=== PATIENT | female | born 1955 | race Caucasian/White ===

== ENCOUNTER 2018-08-29 08:37 | Outpatient (CLI) | payer OTHER ==
[~2018-08-29 08:37] MED LIST: CEFTIN500 MG; LIPITOR20 MG; SYNTHROID88 MCG
== END 2018-08-29 08:45 | disposition home or self-care (01) ==
LOC: LAB 08:37
DX: E03.8 Other specified hypothyroidism (principal); E78.00 Pure hypercholesterolemia, unspecified; E55.9 Vitamin D deficiency, unspecified; R03.0 Elevated blood-pressure reading, without diagnosis of hypertension

== ENCOUNTER 2018-11-28 08:46 | Outpatient (CLI) | payer OTHER | END 2018-11-28 12:02 | disposition home or self-care (01) | LOC: LAB 08:46 | DX: M54.5 Low back pain (principal); E03.8 Other specified hypothyroidism; E55.9 Vitamin D deficiency, unspecified; E78.89 Other lipoprotein metabolism disorders; I11.9 Hypertensive heart disease without heart failure; M81.0 Age-related osteoporosis without current pathological fracture; Z12.11 Encounter for screening for malignant neoplasm of colon; Z13.820 Encounter for screening for osteoporosis ==

== ENCOUNTER 2018-11-28 09:40 | Outpatient (CLI) | payer OTHER | END 2018-11-28 13:46 | disposition home or self-care (01) | LOC: MAMO-SONO 09:40 | DX: Z12.31 Encounter for screening mammogram for malignant neoplasm of breast (principal); Z68.26 Body mass index [BMI] 26.0-26.9, adult; M54.5 Low back pain; E03.8 Other specified hypothyroidism; E55.9 Vitamin D deficiency, unspecified; E78.89 Other lipoprotein metabolism disorders; Z13.820 Encounter for screening for osteoporosis ==

== ENCOUNTER 2018-12-10 10:39 | Outpatient (CLI) | payer OTHER | END 2018-12-10 11:10 | disposition home or self-care (01) | LOC: EDBD 10:39 → LAB 10:39 → NUCLEAR 14:30 | DX: M54.5 Low back pain (principal); E03.8 Other specified hypothyroidism; E55.9 Vitamin D deficiency, unspecified; E78.49 Other hyperlipidemia; I11.9 Hypertensive heart disease without heart failure; M81.0 Age-related osteoporosis without current pathological fracture; Z12.11 Encounter for screening for malignant neoplasm of colon; Z68.26 Body mass index [BMI] 26.0-26.9, adult; Z13.820 Encounter for screening for osteoporosis ==

== ENCOUNTER → 2018-12-10 | Outpatient (CLI) | payer OTHER | END | disposition home or self-care (01) | LOC: NUCLEAR 11:42 | DX: M81.0 Age-related osteoporosis without current pathological fracture (principal); M54.5 Low back pain ==

== ENCOUNTER 2019-03-03 08:10 | Outpatient (CLI) | payer OTHER | END 2019-03-03 08:15 | disposition home or self-care (01) | LOC: LAB 08:10 | DX: E03.8 Other specified hypothyroidism (principal); E55.9 Vitamin D deficiency, unspecified; I11.9 Hypertensive heart disease without heart failure; Z68.26 Body mass index [BMI] 26.0-26.9, adult; M54.5 Low back pain; E78.89 Other lipoprotein metabolism disorders; M81.0 Age-related osteoporosis without current pathological fracture; Z12.11 Encounter for screening for malignant neoplasm of colon; Z13.820 Encounter for screening for osteoporosis; Z12.31 Encounter for screening mammogram for malignant neoplasm of breast ==

== ENCOUNTER 2019-06-24 07:37 | Outpatient (CLI) | payer OTHER | END 2019-06-24 15:00 | disposition home or self-care (01) | LOC: LAB 07:37 | DX: E55.9 Vitamin D deficiency, unspecified (principal); I11.9 Hypertensive heart disease without heart failure; Z68.26 Body mass index [BMI] 26.0-26.9, adult; M54.5 Low back pain; E03.8 Other specified hypothyroidism; E78.49 Other hyperlipidemia; M81.0 Age-related osteoporosis without current pathological fracture; Z12.11 Encounter for screening for malignant neoplasm of colon; Z13.820 Encounter for screening for osteoporosis; Z12.31 Encounter for screening mammogram for malignant neoplasm of breast ==

== ENCOUNTER 2019-09-29 07:56 | Outpatient (CLI) | payer OTHER | END 2019-09-29 08:02 | disposition home or self-care (01) | LOC: LAB 07:56 | DX: E55.9 Vitamin D deficiency, unspecified (principal); I11.9 Hypertensive heart disease without heart failure; Z68.26 Body mass index [BMI] 26.0-26.9, adult; M54.5 Low back pain; E03.8 Other specified hypothyroidism; E78.89 Other lipoprotein metabolism disorders; M81.0 Age-related osteoporosis without current pathological fracture; Z12.11 Encounter for screening for malignant neoplasm of colon; Z13.820 Encounter for screening for osteoporosis; Z12.31 Encounter for screening mammogram for malignant neoplasm of breast ==

== ENCOUNTER 2019-12-31 09:02 | Outpatient (CLI) | payer OTHER | END 2019-12-31 09:07 | disposition home or self-care (01) | LOC: LAB 09:02 | DX: I11.9 Hypertensive heart disease without heart failure (principal); Z68.25 Body mass index [BMI] 25.0-25.9, adult; Z12.11 Encounter for screening for malignant neoplasm of colon; Z13.820 Encounter for screening for osteoporosis; M54.5 Low back pain; E78.1 Pure hyperglyceridemia; E55.9 Vitamin D deficiency, unspecified; E78.2 Mixed hyperlipidemia; Z68.26 Body mass index [BMI] 26.0-26.9, adult; E03.8 Other specified hypothyroidism; E78.89 Other lipoprotein metabolism disorders; M81.0 Age-related osteoporosis without current pathological fracture; Z12.31 Encounter for screening mammogram for malignant neoplasm of breast ==

== ENCOUNTER 2019-12-31 10:47 | Outpatient (CLI) | payer OTHER | END 2019-12-31 10:49 | disposition home or self-care (01) | LOC: MAMO-SONO 10:47 | DX: Z12.31 Encounter for screening mammogram for malignant neoplasm of breast (principal); Z87.898 Personal history of other specified conditions; E55.9 Vitamin D deficiency, unspecified; I11.9 Hypertensive heart disease without heart failure; Z68.25 Body mass index [BMI] 25.0-25.9, adult; Z12.11 Encounter for screening for malignant neoplasm of colon; Z13.820 Encounter for screening for osteoporosis; M54.5 Low back pain; E78.2 Mixed hyperlipidemia; Z68.26 Body mass index [BMI] 26.0-26.9, adult; E03.8 Other specified hypothyroidism; E78.89 Other lipoprotein metabolism disorders ==

== ENCOUNTER → 2020-04-05 07:59 | Outpatient (CLI) | payer OTHER | END | disposition home or self-care (01) | LOC: LAB 07:59 | PROVIDERS: ATTEND Internal Medicine | DX: E03.8 Other specified hypothyroidism (principal); I11.9 Hypertensive heart disease without heart failure; Z68.25 Body mass index [BMI] 25.0-25.9, adult; Z12.11 Encounter for screening for malignant neoplasm of colon; Z13.820 Encounter for screening for osteoporosis; M54.5 Low back pain; E55.9 Vitamin D deficiency, unspecified; E78.1 Pure hyperglyceridemia; E78.2 Mixed hyperlipidemia; Z68.26 Body mass index [BMI] 26.0-26.9, adult; E78.89 Other lipoprotein metabolism disorders; M81.0 Age-related osteoporosis without current pathological fracture; Z12.31 Encounter for screening mammogram for malignant neoplasm of breast ==

== ENCOUNTER → 2021-04-28 09:02 | Outpatient (CLI) | payer OTHER | END | disposition home or self-care (01) | LOC: LAB 09:02 | PROVIDERS: ATTEND Internal Medicine | DX: E03.8 Other specified hypothyroidism (principal); E55.9 Vitamin D deficiency, unspecified; Z68.25 Body mass index [BMI] 25.0-25.9, adult; M54.5 Low back pain; E78.1 Pure hyperglyceridemia; E78.2 Mixed hyperlipidemia; I10 Essential (primary) hypertension; I70.0 Atherosclerosis of aorta; Z68.26 Body mass index [BMI] 26.0-26.9, adult; E78.89 Other lipoprotein metabolism disorders; Z12.31 Encounter for screening mammogram for malignant neoplasm of breast ==

== ENCOUNTER 2021-04-28 10:09 | Outpatient (CLI) | payer OTHER | END 2021-04-28 10:15 | disposition home or self-care (01) | LOC: MAMO-SONO 10:09 | PROVIDERS: ATTEND Internal Medicine | DX: R92.0 Mammographic microcalcification found on diagnostic imaging of breast (principal); Z12.31 Encounter for screening mammogram for malignant neoplasm of breast; N64.89 Other specified disorders of breast; M54.5 Low back pain; E55.9 Vitamin D deficiency, unspecified; Z68.25 Body mass index [BMI] 25.0-25.9, adult; E78.1 Pure hyperglyceridemia; E78.2 Mixed hyperlipidemia; I10 Essential (primary) hypertension; I70.0 Atherosclerosis of aorta; Z68.26 Body mass index [BMI] 26.0-26.9, adult; E03.8 Other specified hypothyroidism; E78.89 Other lipoprotein metabolism disorders ==

== ENCOUNTER → 2022-02-24 08:51 | Outpatient (CLI) | payer OTHER | END | disposition home or self-care (01) | LOC: NUCLEAR 08:51 | PROVIDERS: ATTEND Internal Medicine | DX: Z13.820 Encounter for screening for osteoporosis (principal); Z12.31 Encounter for screening mammogram for malignant neoplasm of breast; E55.9 Vitamin D deficiency, unspecified; Z68.25 Body mass index [BMI] 25.0-25.9, adult; M54.59 Other low back pain; E78.1 Pure hyperglyceridemia; E78.2 Mixed hyperlipidemia; I10 Essential (primary) hypertension; I70.0 Atherosclerosis of aorta; Z68.26 Body mass index [BMI] 26.0-26.9, adult; E03.9 Hypothyroidism, unspecified; E78.9 Disorder of lipoprotein metabolism, unspecified ==

== ENCOUNTER 2022-05-16 10:12 | Outpatient (CLI) | payer OTHER | END 2022-05-16 10:21 | disposition home or self-care (01) | LOC: MAMO-SONO 10:12 | PROVIDERS: ATTEND Internal Medicine | DX: Z12.31 Encounter for screening mammogram for malignant neoplasm of breast (principal) ==

== ENCOUNTER 2025-03-25 09:50 | Outpatient (CLI) | payer OTHER | END 2025-03-25 09:54 | disposition home or self-care (01) | LOC: MAMO-SONO 09:50 | PROVIDERS: ATTEND Internal Medicine | DX: E55.9 Vitamin D deficiency, unspecified (principal); Z68.25 Body mass index [BMI] 25.0-25.9, adult; E78.1 Pure hyperglyceridemia; E78.2 Mixed hyperlipidemia; I10 Essential (primary) hypertension; I70.0 Atherosclerosis of aorta; E03.9 Hypothyroidism, unspecified; Z68.26 Body mass index [BMI] 26.0-26.9, adult; Z12.31 Encounter for screening mammogram for malignant neoplasm of breast; Z13.820 Encounter for screening for osteoporosis; Z12.11 Encounter for screening for malignant neoplasm of colon; N60.11 Diffuse cystic mastopathy of right breast; N60.12 Diffuse cystic mastopathy of left breast; N64.4 Mastodynia ==